=== PATIENT | female | born 1950 | race American Indian/Alaskan Native ===

== ENCOUNTER 2018-02-03 15:01 | Outpatient (CLI) | payer MEDICARE ==
--- NOTE | 2018-02-04 16:47 | XRay Report ---
FINAL REPORT PROCEDURE: Pelvis and right hip. TECHNIQUE: AP pelvis, AP and frogleg lateral views of the right hip. HISTORY: Right hip pain. COMPARISON: No prior studies are available for comparison. FINDINGS: Pelvis: The pelvis appears intact without fracture. The sacrum and sacroiliac joints appear normal. The symphysis pubis appears normal. Both hip joints appear satisfactory. There is a posterior lumbar fusion present in the lumbosacral region. Right hip: The bones appear intact without fracture or dislocation. The hip joint appears satisfactory. The soft tissues are unremarkable. IMPRESSION: Previous lumbosacral spine fusion. Normal study of the right hip.
== END 2018-02-03 15:02 | disposition home or self-care (01) ==
LOC: SPVIMAG 15:01
PROVIDERS: ATTEND Orthopaedic Surgery Sports Medicine
DX: M25.551 Pain in right hip (principal); M43.27 Fusion of spine, lumbosacral region

== ENCOUNTER 2018-12-19 11:08 | Outpatient (CLI) | payer MEDICARE ==
--- NOTE | 2018-12-20 07:58 | Mammography Report ---
BONE DEXA:12/19/18 11:08:00 CLINICAL: Postmenopausal. No comparison. TECHNIQUE: Two site bone DEXA performed on an Hologic scanner. FINDINGS: The average BMD of the left forearm is 0.659g/cm squared with a T-score of +1.9 and a Z-score of +1.4. The average BMD of the left hip is 1.124g/cm squared with a T-score of +0.6 and a Z-score of +1.7. IMPRESSION: WHO classification: Normal with average fracture risk based on both left forearm and left hip measurements. RECOMMENDATION: Clinical correlation and routine screening. DEFINITIONS: BMD = Bone Mineral Density T-score = BMD related to mean peak bone mass of young adult (mean expressed in Standard Deviation) Z-score = Age matched BMD expressed in SD World Health Organization (WHO) Diagnostic Criteria Normal T-score > -1 SD Osteopenia T-score between -1 and -2.4 SD Osteoporosis T-score -2.5 SD or below NOTE: BMD is not the only risk factor for fracture. One should also consider factors such as the patient's age, risk of falling, previous osteoporotic fracture, family history of osteoporotic fractures, current smoker, and low body weight. Z-scores are not calculated if >80 years of age.
--- NOTE | 2018-12-20 12:15 | Mammography Report ---
BILATERAL DIGITAL SCREENING MAMMOGRAM with CAD: 12/19/18 11:08:00 CLINICAL: Routine screening. COMPARISON:06/28/12 FINDINGS: The breasts are heterogeneously dense, which may obscure small masses. A group of right outer calcifications is new and requires additional imaging.No mass or architectural distortion.Bilateral benign vascular calcifications. The left breast is negative. IMPRESSION: Right calcifications requiring further workup. BI-RADS CATEGORY: 0 -- Additional Imaging Evaluation Required RECOMMENDATION: Recall for right mediolateral and spot magnification ML and CC views. ACR BI-RADS MAMMOGRAPHIC CODES: 0 = Needs additional imaging evaluation; 1 = Negative; 2 = Benign; 3 = Probably benign; 4 = Suspicious; 5 = Malignant; 6 = Known biopsy-proven malignancy COMMENT: 1. Dense breast tissue, i.e., adenosis, fibrocystic changes, etc., may obscure an underlying neoplasm. 2. Approximately 10% of cancers are not detected with mammography. 3. A negative mammography report should not delay biopsy if a clinically suspicious mass is present. COMMENT: Patient follow-up letters are generated via our [employer] application.
== END 2018-12-19 11:09 | disposition home or self-care (01) ==
LOC: SPVWC 11:08
PROVIDERS: ATTEND Internal Medicine
DX: Z12.31 Encounter for screening mammogram for malignant neoplasm of breast (principal); I10 Essential (primary) hypertension; E11.9 Type 2 diabetes mellitus without complications; K21.9 Gastro-esophageal reflux disease without esophagitis; Z78.0 Asymptomatic menopausal state
CPT/HCPCS: 77067; 77080

== ENCOUNTER 2019-01-13 12:43 | Outpatient (CLI) | payer MEDICARE ==
--- NOTE | 2019-01-13 14:38 | Mammography Report ---
RIGHT DIGITAL DIAGNOSTIC MAMMOGRAM: 01/13/19 12:43:00 CLINICAL: For clip placement immediately status post stereotactic biopsy for calcifications. COMPARISON:12/29/18 FINDINGS: A biopsy clip is now identified at the site of previously described calcifications. Most of the calcifications had been removed but some remain. IMPRESSION: Concordant clip placement status post stereotactic biopsy. BI-RADS CATEGORY: 4--Suspicious Pathology pending.
--- NOTE | 2019-01-13 15:38 | Mammography Report ---
STEREOTACTIC VACUUM ASSISTED BIOPSY WITH CLIP PLACEMENT RIGHT BREAST: 01/13/19 12:43:00 CLINICAL: Calcifications COMPARISON:12/29/18 FINDINGS: Consent for the procedure was obtained. The previously described group of clustered calcifications was targeted with stereotactic guidance. The skin was prepped with Betadine and anesthetized with 1% lidocaine. 2% lidocaine with epinephrine was injected for deeper anesthesia. 8 gauge Mammotome biopsy was performed from a lateral approach through a small dermatotomy. Prefire and post-fire images demonstrated satisfactory positioning of the probe. Samples were obtained around the clock face. A specimen radiograph confirmed satisfactory sampling with removal of outbound call center representative calcifications. A clip was placed at the biopsy site and deployment was confirmed with an image. The probe was removed and hemostasis was achieved with pressure to the site. A sterile dressing and compression bandage were applied. The patient tolerated the procedure well and there were no apparent complications. Two view mammogram demonstrated concordant position of the biopsy clip. IMPRESSION: Uncomplicated stereotactic biopsy with clip placement right breast.
== END 2019-01-13 12:44 | disposition home or self-care (01) ==
LOC: SPVWC 12:43
PROVIDERS: ATTEND Internal Medicine
DX: D05.11 Intraductal carcinoma in situ of right breast (principal); R92.0 Mammographic microcalcification found on diagnostic imaging of breast; E11.9 Type 2 diabetes mellitus without complications; I10 Essential (primary) hypertension; K21.9 Gastro-esophageal reflux disease without esophagitis; Z79.899 Other long term (current) drug therapy; Z79.82 Long term (current) use of aspirin; Z79.4 Long term (current) use of insulin; Z98.890 Other specified postprocedural states; Z88.0 Allergy status to penicillin
CPT/HCPCS: 19081; 77065; 88305; A4648; 88341; 88342